=== PATIENT | male | born 1930 | race Caucasian/White ===

== ENCOUNTER 2016-09-18 12:53 | Inpatient (IN) | payer MEDICARE, OTHER ==
--- NOTE | ~2016-09-18 | PUL ---
[id number] [place]. [address] NAME: MERLIN BENTON : 31 STATUS : ADM IN PAT#: [id number] AGE: 86 ADM/REG DATE : 09/18/16 MR#: [id number] REPORT SERV DATE: 09/25/16 DICTATED BY: BROOKLYNN SIMMONS DATE: 09/25/16 REPORT STATUS : Draft TRANSCRIBED BY: MODL DATE: 09/25/16 PULMONARY FUNCTION TEST This is the second overnight oximetry on Mr. Benton. The previous one had been on very high flow oxygen and this was redone on a still robust 12 liters/minute, though not as much as 15. On 12 liters of supplemental oxygen, the patient had more than 10 minutes of desaturation with at least one desaturation of 6 continues minutes below 88%. IMPRESSION: Oxygen desaturation consistent with a diagnosis of respiratory failure despite adequate supplemental oxygen. HAIR/LALITO Brooklynn Simmons M.D. / [id number] CC: Obdulia Brewster M.D.
--- NOTE | ~2016-09-18 | IDS ---
Interim Discharge Summary [facility] [address] [facility] [place]. [address] NAME: MERLIN KENNEY : 32 STATUS : ADM IN [facility]#: [id number] AGE: 86 ADM/REG DATE : 09/18/16 MR#: [id number] REPORT SERV DATE: 09/26/16 DICTATED BY: BHUMIKA [place] DATE: 09/26/16 REPORT STATUS : Draft TRANSCRIBED BY: MODL DATE: 09/26/16 ADMISSION DATE: 09/18/2016 DISCHARGE DATE: Consulting physician is Dr. Simmons for Pulmonary and he signed off. INTERIM DIAGNOSES: This is an 86-year-old male, who has the interim diagnoses of: 1. Acute on chronic hypoxic and hypercapnic respiratory failure. 2. Obstructive sleep apnea. 3. Pulmonary fibrosis. 4. Possible microaspiration. 5. History of esophageal strictures. 6. Paroxysmal atrial fibrillation with sick sinus syndrome. 7. Chronic obstructive pulmonary disease. 8. Parkinson disorder. 9. Mild dementia. 10.History of gout. 11.Benign prostatic hypertrophy. 12.Hypothyroidism. DIAGNOSTIC EXAMS: Chest x-ray showing asymmetric interstitial thickening more prominent on the right, likely related to edema, superimposed upon interstitial fibrosis, persistent low lung volumes with elevation of the diaphragm and basilar atelectasis. Swallowing study: There is vallecular pooling with oral residue with volume cracker and thin rinse honey with teaspoon that clears with second swallow. Pudding with teaspoon clearing with second swallow. Ultrasound of the lower extremity: Negative DVT. CAT scan of the chest showing chronic bilateral pulmonary fibrosis with asymmetric ground- glass component on the right compared to the left breast. It is probably on the left lung, stable since 04/2015, no superimposed airspace consolidation to suggest pneumonia. Severe three-vessel coronary artery disease. Pulmonary trunk enlargement suggesting underlying pulmonary hypertension. Echocardiogram showing left ventricular diastolic dysfunction, aortic sclerosis, and mitral annular calcification. EF at around 55% to 60%. HOSPITAL COURSE: Please refer to the H and P done by Dr. Latham dated on 09/19/2016. Briefly, this is an 86-year-old male with dementia, esophageal stricture, paroxysmal AFib, not on anticoagulation because of bleeding risk. He was used to be on a soft mechanical diet, now tolerating regular. Has been having increasing shortness of breath for several days. The patient is usually on 3 L of oxygen for his lung problem, but has been increasing his oxygen. The patient came to the emergency room, was found to have an acute on chronic hypoxic hypercapnic respiratory failure. He did not have any pneumonia per the CAT scan, Interim Discharge Summary [address] [place]. [address] NAME: MERLIN KENNEY : 31 STATUS : ADM IN PAT#: [id number] AGE: 86 ADM/REG DATE : 09/18/16 MR#: [id number] REPORT SERV DATE: 09/26/16 DICTATED BY: BHUMIKA WASHINGTON. DATE: 09/26/16 REPORT STATUS : Draft TRANSCRIBED BY: MODL DATE: 09/26/16 but because of his presentation, he was started on steroids and antibiotics. We got Pulmonary involved, and they recommended BiPAP on him. When we finally figured out that the patient actually has a Trilogy at home and they would say that the Trilogy was better. The patient initially was taking high amounts of oxygen about 15 L oxygen and right now it is only at 4 L. The patient also came in with some constipation. They tell me that he was taking MiraLAX at home and that usually works for him. It did work, and the patient is now having diarrhea. We stopped the MiraLAX and the diarrhea is getting better. Further history revealed that the patient usually responsive with only one teaspoon of MiraLAX, but we found out too late as this was not told to us. The patient will be needing rehab as per recommendation of PT. Pulmonary cleared the patient to go there with a Trilogy. We are waiting for rehab placement and the Trilogy approval so that the patient can be discharged to rehab. Partner [facility] will be following up with the patient starting tomorrow morning. GALE/LALITO Bhumika [place] M.D. / [id number] CC: Obdulia Brewster M.D.
--- NOTE | ~2016-09-18 | HP ---
History And Physical [address] [facility] [place]. [address] NAME: MERLIN KENNEY : 31 STATUS : ADM IN [facility]#: [id number] AGE: 86 ADM/REG DATE : 09/18/16 MR#: [id number] REPORT SERV DATE: 09/19/16 DICTATED BY: JH KAUFMAN DATE: 09/18/16 REPORT STATUS : Draft TRANSCRIBED BY: MODL DATE: 09/18/16 DATE OF ADMISSION: 09/18/2016 REASON FOR ADMISSION: Shortness of breath. The patient apparently sees Mil[facility] neurologist, also sees Dr. Camarena for Cardiology needs, also sees Dr. Rosalino Stroud. HISTORY OF PRESENT ILLNESS: This is an 86-year-old male with known history of mild dementia due to Parkinson, history of esophageal stricture, orthostasis, paroxysmal AFib, previously on Coumadin. CHADS-VASc is elevated, has a bleed risk on Coumadin and Xarelto. As a result, he is on aspirin and Plavix. Mild oropharyngeal dysphagia, used to be on a soft mechanical diet when he left [place] weeks ago. Now, he is on a regular diet; suspected pulmonary fibrosis, unclear etiology; history of CAD; PCI in 2000 and 2014; history of abdominal aortic aneurysm status post EVAR; sick sinus syndrome, status post demand dependent pacer; gout; macular degeneration; history of debility; fall; right hip fracture status post ORIF, 2016; BPH. The patient in the two months has had increased sedentary lifestyle, anhedonia, no longer going with his to the doctor. Then in last several days, the patient has been having increased shortness of breath, dyspnea on exertion, decreased exercise tolerance, getting short of breath even walking in his own home at this point, nonproductive cough with recently placed nine days ago on doxycycline for a right lateral aspect foot cellulitis. He had no fevers, no chills, no nausea, no vomiting, no diarrhea, no chest pain, no chest pressure. Positive shortness of breath. The patient is a poor historian. Much of the history is obtained from his family for which his son is a slight tube filler. 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 PAST MEDICAL AND PAST SURGICAL HISTORY: See above. ALLERGIES: MORPHINE NARCOTICS, RESPIRATORY ARREST, ONLY DRUG INTOLERANCE. SOCIAL HISTORY: Does not smoke, drink, or do drugs at this time. Does live at home on 3 L home oxygen. Quality of life has become poor. FAMILY HISTORY: Hypertension at least one parent. MEDICATIONS: See MAR. Continue what is relevant as well as having. REVIEW OF SYSTEMS: Done, see HPI. Otherwise, negative. History And Physical [address] [address] NAME: MERLIN KENNEY : 31 STATUS : ADM IN PAT#: [id number] AGE: 86 ADM/REG DATE : 09/18/16 MR#: [id number] REPORT SERV DATE: 09/19/16 DICTATED BY: JH KAUFMAN DATE: 09/18/16 REPORT STATUS : Draft TRANSCRIBED BY: LALITO DATE: 09/18/16 OBJECTIVE: VITAL SIGNS: He has currently 168 systolic, he was 129/76. Apparently, he is usually 110 with orthostasis, 69 pulse, 24 respirations. He was 95% on 4 L, currently he is 92 on 4. He is a mouth breather. GENERAL: Guarded. HEENT: PERRLA. No scleral icterus. CARDIOVASCULAR: Seemed to have a regular rhythm with on the telemetry showing PVCs. No murmur auscultated. RESPIRATORY: Significant crackles of the right base. Decreased breath sounds on the left. ABDOMEN: Nontender, nondistended. Positive bowel sounds. EXTREMITIES: Does have 1+ pitting edema in his right lower extremity compared to his left. NEURO: He is A and O x3/4, has a GCS of 14-15. PSYCH: Unable to assess given neuro status. LABORATORY DATA: He has a white count of 13,000, 12.4 hemoglobin, 171,000 platelets. INR 1.31, 4.0 potassium, 143 sodium, 34 bicarbonate, 1.17 creatinine, 24 BUN, 105 sugar, BNP 235. Troponin negative. Albumin 3.0. AB.38/53/53 on 40%. I asked the son who stated maybe he is in the 50s for his pCO2 at baseline. Chest x-ray: Significant right hemidiaphragm, lung field alveolar infiltration, decreased inspiratory effort, poor film as a result. EKG: He has a normal sinus rhythm, no overt ischemic ST-T changes, does have maybe incomplete right bundle. ASSESSMENT: 1. Severe sepsis. 2. Pneumonia. 3. Ztwvy-so-wtvnsnw hypercapnic hypoxic respiratory failure. He is on 3 L nasal cannula at baseline. 4. History of obstructive sleep apnea. He is not able to tolerate a repeat polysomnography test as an outpatient. His son endorses to me that he has difficulty with CPAP seal and as a result, maybe interested in home BiPAP, possible nasal BiPAP. 5. Mild volume overload. 6. Prerenal azotemia. 7. Right lower extremity greater than left lower extremity swelling. PLAN: 1. Admit this patient by myself. He is on doxycycline at home and as a result, is likely not overwhelmingly toxic at this point for presumed pneumonia, panculture, vancomycin, Levaquin, Flagyl, known dysphagia, known non-administration of his recommended diet of soft mechanical, as a result may have aspirated. 2. Given pulmonary fibrosis concern in chronic respiratory failure, place him on Solu- Medrol 60 IV t.i.d. until Pulmonary evaluates the patient. I will look at his lung architecture with a CT scan without contrast given prerenal azotemia. Get an ultrasound of the lower extremity to rule out DVT. Swab for influenza. Wound care consult, right foot. Modified barium swallow. We will start him empirically on pureed as a result. Bumex one IV t.i.d. x3, then Bumex 1 IV daily. 3. BiPAP at night. Consider possible home BiPAP or nasal BiPAP. Place on Venturi mask at this time. Given mouth breathing status. See rest of my orders. History And Physical [address] [address] NAME: MERLIN KENNEY : 31 STATUS : ADM IN PAT#: [id number] AGE: 86 ADM/REG DATE : 09/18/16 MR#: [id number] REPORT SERV DATE: 09/19/16 DICTATED BY: JH KAUFMAN DATE: 09/18/16 REPORT STATUS : Draft TRANSCRIBED BY: MODL DATE: 09/18/16 All questions were answered. It took well over 60 minutes to do. Reference [employer]. WST/MODL Jh Kaufman DO / [id number] CC: MD Dr. Db Serrano.
--- NOTE | ~2016-09-18 | PUL ---
[facility] [address] [place]. [address] NAME: MERLIN KENNEY : 31 STATUS : ADM IN PAT#: [id number] AGE: 86 ADM/REG DATE : 09/18/16 MR#: [id number] REPORT SERV DATE: 09/25/16 DICTATED BY: BROOKLYNN PHELPS DATE: 09/25/16 REPORT STATUS : Draft TRANSCRIBED BY: MODL DATE: 09/25/16 PULMONARY FUNCTION TEST PROCEDURE PERFORMED: Overnight oximetry performed on the night of 09/19/2016. Indications for concern for respiratory failure. The patient was tested on 15 liters/minute of oxygen. This is a far cry from his baseline. On that high-flow, he had no significant sustained desaturation. IMPRESSION: No significant desaturation on oxygen, though note the very high flow used during testing. CB/LALITO Brooklynn Phelps M.D. / [id number] CC: Obdulia Brewster M.D.
--- NOTE | ~2016-09-18 | DS ---
Discharge Summary [facility] [address] [place]. [address] NAME: MERLIN KENNEY : 32 STATUS : DIS IN PAT#: [id number] AGE: 86 ADM/REG DATE : 09/18/16 MR#: [id number] REPORT SERV DATE: 09/29/16 DICTATED BY: BHUMIKA GA DATE: 09/28/16 REPORT STATUS : Draft TRANSCRIBED BY: MODL DATE: 09/28/16 ADMISSION DATE: 09/18/2016 DISCHARGE DATE: 09/28/2016 CONSULTANTS: Dr. George Simmons M.D., Pulmonary Critical Care. DISCHARGE DIAGNOSES: 1. Acute on chronic hypercapnic hypoxic respiratory failure. 2. Severe pulmonary fibrosis with chronic hypoxemia, requiring continuous oxygen. 3. Obstructive sleep apnea, now requiring nocturnal BiPAP. 4. Paroxysmal atrial fibrillation with sick sinus syndrome and pacemaker. 5. Parkinson disease with dementia. 6. Chronic elevation of left hemidiaphragm. 7. History of esophageal stricture. 8. History of previous endograft repair for abdominal aortic aneurysm. 9. History of gout. 10.Benign prostatic hypertrophy. 11.Hypertension. HISTORY: This patient presented to the emergency room at [facility]. His family brought him in. He had been gradually getting worse over the last two months, less and less energy, more and more short of breath over the last few days to the point he was dyspneic at rest. In the emergency room, he was found to have hypoxic hypercapnic respiratory failure. We were asked to admit him to the hospital. His blood gas on presentation on 40% oxygen, pH 7.38, pCO2 of 53, pO2 of 53, bicarbonate 31.1. Chest x-ray on admission shows asymmetrical interstitial fibrosis, more prominent on the right, low lung volumes with chronic elevation of the left hemidiaphragm. The patient had a swallow study and he was felt by Speech Pathology to tolerate mechanical soft diet, chopped meats with gravy, nectar thick liquids with aspiration precautions. Venous Doppler in both legs due to some swelling revealed no evidence of deep vein thrombosis on 09/19/2016. Chest CT without contrast, 09/19/2016, revealed chronic bilateral pulmonary fibrosis with asymmetrical ground glass component, right compared to the left. No new superimposed infiltrate. Severe three- vessel coronary artery changes or stents noted. Pulmonary artery was enlarged suggesting pulmonary hypertension. His echocardiogram on 09/19/2016 showed diastolic congestive heart failure left ventricular ejection fraction 55% to 60%, left atrial size 3.6 cm. He was initially started on Levaquin, vancomycin, and Flagyl along with Florastor. He was also given some Bumex diuretic and placed on BiPAP. Blood cultures had no growth. Procalcitonin was 0.13. His influenza A and B swabs were negative. Urine strep and Legionella antigens were both negative. He was seen by Pulmonary, Dr. Simmons. His steroids were tapered. His antibiotics were weaned off when there was no convincing evidence of ongoing respiratory infection. The patient at home has a trilogy, but apparently did not have full qualifications for that. Pulmonary, Dr. Simmons recommended BiPAP at night with pressures of 15/5 with a rate of 12. Dr. Simmons felt the patient needed this because his pCO2 is greater than 50 and he had Discharge Summary [address] [address] NAME: MERLIN KENNEY : 32 STATUS : DIS IN PAT#: [id number] AGE: 86 ADM/REG DATE : 09/18/16 MR#: [id number] REPORT SERV DATE: 09/29/16 DICTATED BY: BHUMIKA GA DATE: 09/28/16 REPORT STATUS : Draft TRANSCRIBED BY: LALITO DATE: 09/28/16 more than 10 minutes of oxygen desaturations despite oxygen supplementation. BiPAP has been set up. He has tolerated it well. Initially, he was needed high flow nasal cannula 12 to 15 L, but as he improved down to 4 L nasal cannula. He has been assessed by Physical Therapy and felt to need inpatient rehab. Those arrangements have been made. I have talked with the patient about his end of life wishes. He is quite clear he wants do not resuscitate, do not intubate. Comfort care. His family desires to talk to hospice while he is at the rehab to plan for hospice to start when he goes home. The patient has a history of paroxysmal atrial fibrillation. He has an existing pacemaker in place. He has had some short runs of nonsustained wide-complex tachycardia. It is possible that it was atrial fibrillation with aberration. Coreg has been added to his therapy while he is here. He is quite clear about his DNR status and his family is aware of this. DISCHARGE MEDICATIONS: Aspirin 81 mg daily (in the past he has been judged by his providers to not be a good candidate for anticoagulation for the atrial fibrillation), amiodarone 100 mg daily, Coreg 3.125 mg b.i.d., Plavix 75 mg daily, vitamin B12 of 1000 mcg p.o. daily, vitamin D 1000 units daily, Aricept 5 mg at bedtime, Proscar 5 mg daily, Florinef 0.1 mg daily (chronic medicine for him), Flonase nasal spray a puff daily each nostril, Lasix 40 mg daily, levothyroxine 50 mcg daily (his TSH here was 1.72), Claritin 10 mg daily, Namenda XR 21 mg at bedtime, if that is not available, he could be on 10 mg p.o. b.i.d., Protonix 40 mg daily, Neupro 8 mg per 24 hour patch, change every afternoon, Florastor capsule twice a day for two more weeks, Flomax 0.4 mg every supper, Effexor XR 75 mg daily, albuterol nebulized q.4 hours p.r.n. shortness of breath, Tylenol 650 q.4 hours p.r.n. pain, PreserVision AREDS2 soft gel, he uses one of those capsules daily. He is on oxygen 4 L continuously and the BiPAP as described above. He was warned with sleep. His long-term prognosis is very poor, chance for deterioration is very high. The patient and family know this. He is comfortable with just having comfort care and after rehab transitioning to hospice. I spent 45 minutes today with the patient and with his daughter and [id number] and Case Management. DES/LALITO Bhumika Ga M.D. / [id number] Discharge Summary [address] [address] NAME: SHANE KENNEYELLEN Johansen : 32 STATUS : DIS IN PAT#: [id number] AGE: 86 ADM/REG DATE : 09/18/16 MR#: [id number] REPORT SERV DATE: 09/29/16 DICTATED BY: BHUMIKA GA DATE: 09/28/16 REPORT STATUS : Draft TRANSCRIBED BY: LALITO DATE: 09/28/16 CC: Obdulia Hernandez M.D. Daniel Smith, M.D. [place] Alexander Stratienko, M.D. David Rankine, M.D.
--- NOTE | ~2016-09-18 | CN ---
Consultation Report [facility] [address] [facility] [place]. [address] NAME: MERLIN BENTON : 32 STATUS : ADM IN [facility]#: [id number] AGE: 86 ADM/REG DATE : 09/18/16 MR#: [id number] REPORT SERV DATE: 09/19/16 DICTATED BY: BROOKLYNN PHELPS DATE: 09/19/16 REPORT STATUS : Draft TRANSCRIBED BY: MODIsadora DATE: 09/19/16 CONSULTATION DATE OF CONSULTATION: Thank you for the opportunity to consult on this patient. HISTORY OF PRESENT ILLNESS: Mr. Benton is an 86-year-old man with multiple medical problems to include coronary artery disease, atrial fibrillation, restrictive lung disease with some pulmonary fibrosis, chronic hypoxemia on chronic continuous oxygen, obstructive sleep apnea on CPAP at night, peripheral vascular disease, and sick sinus syndrome. He has had progressive debility and previous falls. On the events leading up to this admission, he had been at home, woke up sometime in the evening to use the restroom and became unresponsive. EMS was called and he was hypoxemic, but had not lost pulse or pressure, was brought in and stabilized. He had developed significant coughing though very little sputum production. PAST MEDICAL HISTORY: Significant for what was noted above. REVIEW OF SYSTEMS: Review of 10 systems was performed with the help of his family who was at the bedside and was positive for what was noted above. FAMILY HISTORY: Noncontributory in this 86-year-old man. SOCIAL HISTORY: Significant for no history of alcohol abuse. He lives with his . They still live somewhat independently though she has macular degeneration. He quit smoking about 48 years ago. No illicit drug use. PHYSICAL EXAMINATION: GENERAL: He is awake and alert, in no acute respiratory distress. HEENT: Normocephalic and atraumatic. NECK: Supple. No lymphadenopathy. No JVD. CHEST: Symmetric with good expansion bilaterally. He has bibasilar crackles. CARDIOVASCULAR: He has S1 and S2, which are regular rate and rhythm. ABDOMEN: Benign. EXTREMITIES: He has no edema. No clubbing. No cyanosis. ASSESSMENT AND PLAN: Acute respiratory failure. The patient has acute on chronic respiratory failure due to a combination of his interstitial lung disease, pulmonary fibrosis, and what appears to be a new respiratory tract infection associated with microaspiration. His pCO2 has been in the 50s since admission though that has been stable and pH has been normal suggesting much of this is chronic. It appears that he has chronic hypercapnic with acute on chronic hypoxemic respiratory failure because of what was noted above. Consultation Report [id number] [facility]. [address] NAME: MERLIN BENTON : 32 STATUS : ADM IN PAT#: [id number] AGE: 86 ADM/REG DATE : 09/18/16 MR#: [id number] REPORT SERV DATE: 09/19/16 DICTATED BY: BROOKLYNN PHELPS DATE: 09/19/16 REPORT STATUS : Draft TRANSCRIBED BY: MODL DATE: 09/19/16 His procalcitonin was less than 0.5, so he may have again presumed aspiration pneumonia, but does not appear to have significant community-acquired bacterial pneumonia. We would recommend continuing with antibiotics, adjusting his diet to reflect a microaspiration and different textures which he aspirates. We will start cutting back on his steroids and the spectrum of his antibiotic coverage. We will be glad to continue to monitor him with you. We also identified issues with his current DME company and supplies of oxygen and masks and he may benefit from a nasal mask for his CPAP since he has difficulty tolerating his current mask. We will be glad to continue to monitor him during his hospitalization, and he will be able to follow up with his crane mechanic, Dr. Garrison Ace, when he is discharged. HAIR/LALITO Brooklynn Phelps M.D. / [id number] CC: MD Rosalino Serrano M.D.
[~2016-09-18 12:53] MED LIST: ARICEPT5 PO; ASAB PO; ATV1 PO; BRILINTA90 MG PO; CLARIT10 PO; CYANO1000T PO; EFFEXXR75 PO; FLOMAX4 PO; HALF81 PO; L20 PO; L40 PO; LAN125 PO; LEVOTHYROXIN50 MCG PO; LYCOPENE 10 MG PO; LYCOPENE PO; MIRALAXPKT PO; NAMENXR21 PO; NASACORTAQ NAS; NEUPRO 4MG4 MG/24 HR TOP; PERSERVISION PO; PLAVIX PO; PRAVACHOL40 MG PO; PRESERVISION A1 EAC1 PO; PRESERVISION PO; PROSCAR5 PO; PROTONIX PO; STIOLTO RESPIMAT4 GM INH; SYN.05 PO; TOPXL25 PO; VITAMIN B-121000 MC1 SL; VITAMIN D31000 UNIT PO; XARELTO20 MG PO; Z100 PO; Z300 PO
[2016-09-18 13:59] LABS: BASOPHILS 0.2 %; BASOPHILS ABSOLUTE 0.03 10/3/uL (0.0-0.16); EOSINOPHILS 1.2 %; EOSINOPHILS ABSOLUTE 0.15 10/3/uL (0.0-0.53); ER CBC TAT 0 Hrs 03 Mins; HEMATOCRIT 38.3 % (40.0-51.0); HEMOGLOBIN 12.4 g/dL (13.6-17.8); IMMATURE GRANULOCYTES 2.7 %; IMMATURE GRANULOCYTES ABSOLUTE 0.35 10/3/uL (0.0-0.11); LYMPHOCYTES 10.7 %; LYMPHOCYTES ABSOLUTE 1.39 10/3/uL (0.67-4.30); MEAN CORPUS HGB CONC 32.4 g/dL (32.0-36.0); MEAN CORPUSCULAR HEMOGLOB 32.4 pg (26.0-34.0); MEAN PLATELET VOLUME 10.9 fL (9.2-13.0); MONOCYTES 5.2 %; MONOCYTES ABSOLUTE 0.68 10/3/uL (0.21-1.20); NEUTROPHILS ABSOLUTE 10.39 10/3/uL (2.02-8.40); PLATELET COUNT 171 10/3/uL (150-400); RED CELL COUNT 3.83 10/6/uL (4.7-6.1)
[2016-09-18 14:07] LABS: INTERNATIONAL NORMAL RATI 1.3 UNITS (-)
[2016-09-18 14:08] LABS: PARTIAL THROMBO TIME 33.9 SEC (22.5-37.2)
[2016-09-18 14:10] LABS: PROTIME (NOT ORD) 16.1 SEC (12.0-14.5)
[2016-09-18 14:11] LABS: MANUAL DIFF NO %
[2016-09-18 14:15] LABS: CALCIUM, SERUM 8.8 MG/DL (8.5-10.4); CHEST PAIN PROFILE TAT 0 Hrs 19 Mins; CHLORIDE, SERUM 102 MMOL/L (96-112); CO2 (CARBON DIOXIDE) 34 MMOL/L (24-34); CREATININE 1.17 MG/DL (0.70-1.30); DIRECT BILIRUBIN 0.1 MG/DL (0.0-0.4); GFR AFRICAN AMERICAN 65 ML/MIN (>=60); GFR NON AFRICAN AMERICAN 57 ML/MIN (>=60); GLUCOSE, SERUM 105 MG/DL (60-99); INDIRECT BILIRUBIN(NOT ORDER) 0.2 MG/DL (0.1-0.9); SGOT(AST) 16 U/L (5-40); SGPT(ALT) 11 U/L (5-65); SODIUM, SERUM 143 MMOL/L (135-148); TOTAL BILIRUBIN 0.3 MG/DL (0-1.2); TOTAL PROTEIN 6.8 G/DL (6.0-8.5); TROPONIN I <0.02 NG/ML (<0.05)
[2016-09-18 14:16] LABS: ALKALINE PHOSPHATASE 112 U/L (45-117); BUN (BLOOD UREA NITROGEN) 24 MG/DL (6-23)
[2016-09-18 14:42] LABS: ALLENS TEST Pos; BE (BASE EXCESS) 4.8 MEQ/L (0 +/- 2.5); CARBOXYHEMOGLOBIN 2.7 % (0-3); HCO3 (ACTUAL BICARBONATE) 31.1 MEQ/L (23-27); HEMOBLOGIN CONTENT 13.2 G/DL (14-18); INSTRUMENT SERIAL # 8087; METHEMOGLOBIN 0.1 % (0-3); O2 CONTENT 15.5 VOL% (18-24); OPERATOR ID 14335; PCO2 (CO2 TENSION) 53 MMHG (35-45); PO2 (O2 TENSION) 53 MMHG (79-93); SAMPLE Arterial; pH 7.38 (7.37-7.43)
[2016-09-18] MEDS ORDERED: NEUPRO1 EACH TOP (15:25)
[2016-09-18] MEDS ORDERED: FLORINEF0.1 MG PO (15:26)
[2016-09-18] MEDS ORDERED: PACERONE100 MG PO (15:26)
[2016-09-18] MEDS ORDERED: KLOR-CON M2020 MEQ PO (15:27)
[2016-09-18] MEDS ORDERED: MONODOX100 MG PO (15:29)
[2016-09-18 15:33] LABS: ASCORBIC ACID (UR NOT ORDER) 20 (NEG); BILIRUBIN, URINE NEGATIVE (NEG); ER URINALYSIS TAT 0 Hrs 15 Mins; KETONE, URINE NEGATIVE (NEG); LEUKOCYTE ESTERASE(NOT OR NEG (NEG); NITRITE (URINE) NEG (NEG); WBC (NOT ORDERED) (RFLEX) < 1 (0-5)
[2016-09-18 19:09] LABS: BE (BASE EXCESS) 8.8 MEQ/L (0 +/- 2.5); INSTRUMENT SERIAL # 11843; PCO2 (CO2 TENSION) 52 MMHG (35-45); PO2 (O2 TENSION) 69 MMHG (79-93); pH 7.44 (7.37-7.43)
[2016-09-18 19:10] LABS: ALLENS TEST Pos; CARBOXYHEMOGLOBIN 1.6 % (0-3); DEVICE VM; HCO3 (ACTUAL BICARBONATE) 34.6 MEQ/L (23-27); HEMOBLOGIN CONTENT 13.4 G/DL (14-18); METHEMOGLOBIN 0.3 % (0-3); O2 CONTENT 17.3 VOL% (18-24); OPERATOR ID 16503; SAMPLE Arterial
[2016-09-18 19:52] LABS: BASOPHILS 0.3 %; BASOPHILS ABSOLUTE 0.03 10/3/uL (0.0-0.16); EOSINOPHILS 2.4 %; EOSINOPHILS ABSOLUTE 0.29 10/3/uL (0.0-0.53); HEMATOCRIT 37.6 % (40.0-51.0); HEMOGLOBIN 12.1 g/dL (13.6-17.8); IMMATURE GRANULOCYTES 2.4 %; IMMATURE GRANULOCYTES ABSOLUTE 0.28 10/3/uL (0.0-0.11); LYMPHOCYTES ABSOLUTE 0.83 10/3/uL (0.67-4.30); MEAN CORPUS HGB CONC 32.2 g/dL (32.0-36.0); MEAN CORPUSCULAR VOLUME 99.5 fL (80-100); MEAN PLATELET VOLUME 10.7 fL (9.2-13.0); MONOCYTES ABSOLUTE 1.42 10/3/uL (0.21-1.20); NEUTROPHILS 75.9 %; NEUTROPHILS ABSOLUTE 8.99 10/3/uL (2.02-8.40); PLATELET COUNT 157 10/3/uL (150-400); RBC DISTRIBUTION WIDTH 13.9 % (12.0-16.0); RED CELL COUNT 3.78 10/6/uL (4.7-6.1); WHITE BLOOD CELLS 11.8 10/3/uL (4.5-10.5)
[2016-09-18 19:53] LABS: MANUAL DIFF NO %
[2016-09-18 20:21] LABS: A/G RATIO 0.8 (0.7-1.9); ALBUMIN 2.8 G/DL (3.5-5.0); ALKALINE PHOSPHATASE 108 U/L (45-117); BUN (BLOOD UREA NITROGEN) 20 MG/DL (6-23); CALCIUM, SERUM 8.5 MG/DL (8.5-10.4); CHLORIDE, SERUM 102 MMOL/L (96-112); CO2 (CARBON DIOXIDE) 32 MMOL/L (24-34); CREATININE 1.13 MG/DL (0.70-1.30); GFR AFRICAN AMERICAN 68 ML/MIN (>=60); GFR NON AFRICAN AMERICAN 59 ML/MIN (>=60); GLOBULIN 3.7 G/DL (2.5-4.1); GLUCOSE, SERUM 102 MG/DL (60-99); PHOSPHORUS, SERUM 2.6 MG/DL (2.5-4.5); POTASSIUM, SERUM 3.4 MMOL/L (3.5-5.3); SGOT(AST) 13 U/L (5-40); SGPT(ALT) 9 U/L (5-65); SODIUM, SERUM 143 MMOL/L (135-148); TOTAL BILIRUBIN 0.4 MG/DL (0-1.2); TOTAL PROTEIN 6.5 G/DL (6.0-8.5)
[2016-09-18 21:00] LABS: PROCALCITONIN 0.13 ng/mL (<0.5)
[2016-09-19 05:00] LABS: BASOPHILS 0.1 %; BASOPHILS ABSOLUTE 0.01 10/3/uL (0.0-0.16); EOSINOPHILS 0.1 %; EOSINOPHILS ABSOLUTE 0.01 10/3/uL (0.0-0.53); HEMATOCRIT 36.3 % (40.0-51.0); HEMOGLOBIN 11.8 g/dL (13.6-17.8); IMMATURE GRANULOCYTES 1.7 %; IMMATURE GRANULOCYTES ABSOLUTE 0.15 10/3/uL (0.0-0.11); LYMPHOCYTES 4.2 %; LYMPHOCYTES ABSOLUTE 0.37 10/3/uL (0.67-4.30); MEAN CORPUS HGB CONC 32.5 g/dL (32.0-36.0); MEAN CORPUSCULAR HEMOGLOB 32.2 pg (26.0-34.0); MEAN CORPUSCULAR VOLUME 98.9 fL (80-100); MEAN PLATELET VOLUME 11.4 fL (9.2-13.0); MONOCYTES 2.2 %; MONOCYTES ABSOLUTE 0.19 10/3/uL (0.21-1.20); NEUTROPHILS 91.7 %; NEUTROPHILS ABSOLUTE 7.99 10/3/uL (2.02-8.40); PLATELET COUNT 163 10/3/uL (150-400); RBC DISTRIBUTION WIDTH 13.7 % (12.0-16.0); RED CELL COUNT 3.67 10/6/uL (4.7-6.1); WHITE BLOOD CELLS 8.7 10/3/uL (4.5-10.5)
[2016-09-19 05:14] LABS: MANUAL DIFF NO %
[2016-09-19 05:18] LABS: BUN (BLOOD UREA NITROGEN) 19 MG/DL (6-23); CALCIUM, SERUM 8.5 MG/DL (8.5-10.4); CHLORIDE, SERUM 99 MMOL/L (96-112); CO2 (CARBON DIOXIDE) 33 MMOL/L (24-34); CREATININE 0.95 MG/DL (0.70-1.30); GFR AFRICAN AMERICAN 84 ML/MIN (>=60); GFR NON AFRICAN AMERICAN 73 ML/MIN (>=60); GLUCOSE, SERUM 128 MG/DL (60-99); PHOSPHORUS, SERUM 3.3 MG/DL (2.5-4.5); POTASSIUM, SERUM 3.7 MMOL/L (3.5-5.3); SODIUM, SERUM 143 MMOL/L (135-148)
[2016-09-19 06:32] LABS: INFLUENZA A SCREEN NEGATIVE (NEGATIVE); INFLUENZA B SCREEN NEGATIVE (NEGATIVE)
[2016-09-19 11:05] LABS: ALLENS TEST Pos; BE (BASE EXCESS) 9.2 MEQ/L (0 +/- 2.5); CARBOXYHEMOGLOBIN 1.9 % (0-3); DEVICE NC; HCO3 (ACTUAL BICARBONATE) 34.9 MEQ/L (23-27); HEMOBLOGIN CONTENT 13.8 G/DL (14-18); INSTRUMENT SERIAL # 8083; METHEMOGLOBIN 0.1 % (0-3); O2 CONTENT 17.2 VOL% (18-24); OPERATOR ID 35859; PCO2 (CO2 TENSION) 52 MMHG (35-45); PO2 (O2 TENSION) 58 MMHG (79-93); SAMPLE Arterial; pH 7.45 (7.37-7.43)
[2016-09-20 06:19] LABS: BASOPHILS 0.1 %; BASOPHILS ABSOLUTE 0.01 10/3/uL (0.0-0.16); EOSINOPHILS 0.1 %; EOSINOPHILS ABSOLUTE 0.01 10/3/uL (0.0-0.53); HEMATOCRIT 38.6 % (40.0-51.0); HEMOGLOBIN 12.6 g/dL (13.6-17.8); IMMATURE GRANULOCYTES 1.2 %; IMMATURE GRANULOCYTES ABSOLUTE 0.16 10/3/uL (0.0-0.11); LYMPHOCYTES ABSOLUTE 0.65 10/3/uL (0.67-4.30); MEAN CORPUS HGB CONC 32.6 g/dL (32.0-36.0); MEAN CORPUSCULAR HEMOGLOB 32.4 pg (26.0-34.0); MEAN CORPUSCULAR VOLUME 99.2 fL (80-100); MEAN PLATELET VOLUME 10.9 fL (9.2-13.0); MONOCYTES 5.2 %; MONOCYTES ABSOLUTE 0.67 10/3/uL (0.21-1.20); NEUTROPHILS 88.4 %; NEUTROPHILS ABSOLUTE 11.42 10/3/uL (2.02-8.40); PLATELET COUNT 200 10/3/uL (150-400); RBC DISTRIBUTION WIDTH 13.4 % (12.0-16.0); RED CELL COUNT 3.89 10/6/uL (4.7-6.1)
[2016-09-20 06:21] LABS: MANUAL DIFF NO %; WHITE BLOOD CELLS 12.9 10/3/uL (4.5-10.5)
[2016-09-20 06:32] LABS: BUN (BLOOD UREA NITROGEN) 27 MG/DL (6-23); CALCIUM, SERUM 8.6 MG/DL (8.5-10.4); CHLORIDE, SERUM 98 MMOL/L (96-112); CO2 (CARBON DIOXIDE) 36 MMOL/L (24-34); CREATININE 1.03 MG/DL (0.70-1.30); GFR AFRICAN AMERICAN 76 ML/MIN (>=60); GFR NON AFRICAN AMERICAN 66 ML/MIN (>=60); GLUCOSE, SERUM 133 MG/DL (60-99); PHOSPHORUS, SERUM 3.4 MG/DL (2.5-4.5); POTASSIUM, SERUM 4.1 MMOL/L (3.5-5.3); SODIUM, SERUM 141 MMOL/L (135-148)
[2016-09-21 06:27] LABS: BASOPHILS 0.1 %; BASOPHILS ABSOLUTE 0.01 10/3/uL (0.0-0.16); EOSINOPHILS 0 %; HEMATOCRIT 37.7 % (40.0-51.0); HEMOGLOBIN 12.4 g/dL (13.6-17.8); IMMATURE GRANULOCYTES 1.9 %; IMMATURE GRANULOCYTES ABSOLUTE 0.23 10/3/uL (0.0-0.11); LYMPHOCYTES 4.1 %; LYMPHOCYTES ABSOLUTE 0.51 10/3/uL (0.67-4.30); MEAN CORPUS HGB CONC 32.9 g/dL (32.0-36.0); MEAN CORPUSCULAR HEMOGLOB 32.3 pg (26.0-34.0); MEAN CORPUSCULAR VOLUME 98.2 fL (80-100); MEAN PLATELET VOLUME 11.4 fL (9.2-13.0); MONOCYTES 4.8 %; MONOCYTES ABSOLUTE 0.59 10/3/uL (0.21-1.20); NEUTROPHILS 89.1 %; PLATELET COUNT 200 10/3/uL (150-400); RBC DISTRIBUTION WIDTH 13.7 % (12.0-16.0); RED CELL COUNT 3.84 10/6/uL (4.7-6.1); WHITE BLOOD CELLS 12.3 10/3/uL (4.5-10.5)
[2016-09-21 06:30] LABS: MANUAL DIFF NO %
[2016-09-21 06:33] LABS: BUN (BLOOD UREA NITROGEN) 33 MG/DL (6-23); CALCIUM, SERUM 8.6 MG/DL (8.5-10.4); CHLORIDE, SERUM 99 MMOL/L (96-112); CO2 (CARBON DIOXIDE) 37 MMOL/L (24-34); CREATININE 1.13 MG/DL (0.70-1.30); GFR AFRICAN AMERICAN 68 ML/MIN (>=60); GFR NON AFRICAN AMERICAN 59 ML/MIN (>=60); GLUCOSE, SERUM 124 MG/DL (60-99); PHOSPHORUS, SERUM 3.4 MG/DL (2.5-4.5); POTASSIUM, SERUM 4.5 MMOL/L (3.5-5.3); SODIUM, SERUM 139 MMOL/L (135-148)
[2016-09-23 04:58] LABS: BASOPHILS 0.2 %; BASOPHILS ABSOLUTE 0.02 10/3/uL (0.0-0.16); EOSINOPHILS 0 %; HEMATOCRIT 40.9 % (40.0-51.0); HEMOGLOBIN 13.1 g/dL (13.6-17.8); IMMATURE GRANULOCYTES 2.6 %; IMMATURE GRANULOCYTES ABSOLUTE 0.32 10/3/uL (0.0-0.11); LYMPHOCYTES 4.1 %; LYMPHOCYTES ABSOLUTE 0.52 10/3/uL (0.67-4.30); MEAN CORPUSCULAR HEMOGLOB 32.5 pg (26.0-34.0); MEAN PLATELET VOLUME 11.3 fL (9.2-13.0); MONOCYTES 5.1 %; MONOCYTES ABSOLUTE 0.64 10/3/uL (0.21-1.20); NEUTROPHILS ABSOLUTE 11.04 10/3/uL (2.02-8.40); PLATELET COUNT 204 10/3/uL (150-400); RBC DISTRIBUTION WIDTH 13.6 % (12.0-16.0); RED CELL COUNT 4.03 10/6/uL (4.7-6.1); WHITE BLOOD CELLS 12.5 10/3/uL (4.5-10.5)
[2016-09-23 04:59] LABS: MANUAL DIFF NO %; MEAN CORPUSCULAR VOLUME 101.5 fL (80-100)
[2016-09-23 05:21] LABS: CALCIUM, SERUM 8.4 MG/DL (8.5-10.4); CHLORIDE, SERUM 98 MMOL/L (96-112); CO2 (CARBON DIOXIDE) 36 MMOL/L (24-34); GFR AFRICAN AMERICAN 64 ML/MIN (>=60); GFR NON AFRICAN AMERICAN 55 ML/MIN (>=60); GLUCOSE, SERUM 135 MG/DL (60-99); POTASSIUM, SERUM 4.6 MMOL/L (3.5-5.3); SODIUM, SERUM 140 MMOL/L (135-148)
[2016-09-23 05:26] LABS: BUN (BLOOD UREA NITROGEN) 38 MG/DL (6-23)
[2016-09-26 06:27] LABS: HEMATOCRIT 39.9 % (40.0-51.0); HEMOGLOBIN 12.9 g/dL (13.6-17.8); MEAN CORPUS HGB CONC 32.3 g/dL (32.0-36.0); MEAN CORPUSCULAR HEMOGLOB 32.4 pg (26.0-34.0); MEAN CORPUSCULAR VOLUME 100.3 fL (80-100); MEAN PLATELET VOLUME 11.2 fL (9.2-13.0); PLATELET COUNT 176 10/3/uL (150-400); RBC DISTRIBUTION WIDTH 13.7 % (12.0-16.0); RED CELL COUNT 3.98 10/6/uL (4.7-6.1); WHITE BLOOD CELLS 11.9 10/3/uL (4.5-10.5)
[2016-09-26 06:28] LABS: MANUAL DIFF YES %
[2016-09-26 08:02] LABS: EOSINOPHILS 2 %; EOSINOPHILS ABSOLUTE (CALC) 0.24 10/3/uL (0.0-0.53); IMMATURE GRANS ABSOLUTE (CALC) 0.48 10/3/uL (0.0-0.11); LYMPHOCYTES 6 %; LYMPHOCYTES ABSOLUTE (CALC) 0.71 10/3/uL (0.67-4.30); METAMYELOCYTES 4 %; MONOCYTES 11 %; MONOCYTES ABSOLUTE (CALC) 1.31 10/3/uL (0.21-1.20); NEUTROPHILS ABSOLUTE (CALC) 9.16 10/3/uL (2.02-8.40); PLATELET ESTIMATE ADQ (ADEQUATE); RBC MORPHOLOGY NORM (NORMAL); SEGMENTED NEUTROPHIL (0) 77 %; TOTAL NUCLEATED CELLS 100
[2016-09-26 08:15] LABS: BUN (BLOOD UREA NITROGEN) 39 MG/DL (6-23); CALCIUM, SERUM 8.4 MG/DL (8.5-10.4); CHLORIDE, SERUM 93 MMOL/L (96-112); CO2 (CARBON DIOXIDE) 40 MMOL/L (24-34); CREATININE 1.08 MG/DL (0.70-1.30); GFR AFRICAN AMERICAN 72 ML/MIN (>=60); GFR NON AFRICAN AMERICAN 62 ML/MIN (>=60); POTASSIUM, SERUM 4.1 MMOL/L (3.5-5.3); SODIUM, SERUM 139 MMOL/L (135-148)
[2016-09-26 08:16] LABS: GLUCOSE, SERUM 95 MG/DL (60-99)
[2016-09-28] MEDS ORDERED: COREG3 PO (12:03)
[2016-09-28] MEDS ORDERED: FLONASE NAS (12:08)
[2016-09-28] MEDS ORDERED: ALBUTEROL5 INH (12:14)
[2016-09-28] MEDS ORDERED: T PO (12:16)
== END 2016-09-28 15:32 | DRG 189 ==
LOC: ER 12:53 → 2SO 17:03
PROVIDERS: Emergency Medicine; Hospitalist; Internal Medicine
PROC: 5A09457 Assistance with Respiratory Ventilation, 24-96 Consecutive Hours, Continuous Positive Airway Pressure (ICD-10-PCS; principal; 2016-09-18)
DX: J96.21 Acute and chronic respiratory failure with hypoxia (principal); G20 Parkinson's disease; I50.32 Chronic diastolic (congestive) heart failure; J44.0 Chronic obstructive pulmonary disease with (acute) lower respiratory infection; I27.2 Other secondary pulmonary hypertension; J84.10 Pulmonary fibrosis, unspecified; R13.12 Dysphagia, oropharyngeal phase; I48.0 Paroxysmal atrial fibrillation; G80.8 Other cerebral palsy; L03.115 Cellulitis of right lower limb; L03.116 Cellulitis of left lower limb; J44.1 Chronic obstructive pulmonary disease with (acute) exacerbation; Z23 Encounter for immunization; J96.22 Acute and chronic respiratory failure with hypercapnia; J98.8 Other specified respiratory disorders; M35.3 Polymyalgia rheumatica; F02.80 Dementia in other diseases classified elsewhere, unspecified severity, without behavioral disturbance, psychotic disturbance, mood disturbance, and anxiety; G47.33 Obstructive sleep apnea (adult) (pediatric); I25.10 Atherosclerotic heart disease of native coronary artery without angina pectoris; M10.9 Gout, unspecified; H35.30 Unspecified macular degeneration; N40.0 Benign prostatic hyperplasia without lower urinary tract symptoms; I45.10 Unspecified right bundle-branch block; Z66 Do not resuscitate; Z79.01 Long term (current) use of anticoagulants; Z95.0 Presence of cardiac pacemaker; Z95.5 Presence of coronary angioplasty implant and graft; Z88.5 Allergy status to narcotic agent; Z99.81 Dependence on supplemental oxygen; Z82.49 Family history of ischemic heart disease and other diseases of the circulatory system; Z98.890 Other specified postprocedural states
CPT/HCPCS: 36600; 71010; 71250; 74230; 80048; 80053; 80076; 81001; 82330; 82803; 82805; 82947; 82962; 83036; 83735; 83880; 84100; 84132; 84145; 84295; 84443; 84484; 85014; 85025; 85610; 85730; 87040; 87449; 87641; 87804; 90662; 92611-GN; 93005; 93308; 93321; 93325; 93970; 94640; 94660; 94762; 97110-GP; 97116-GP; 97161-GP; 99285; A9270-GY; G0008; G8978-CK-GP; G8979-CK-GP; G8980-CK-GP; G8996-CK-GN; G8997-CK-GN; G8998-CK-GN; J0456; J1956; J2405; J2920; J2930; J3370